=== PATIENT | male | born 1985 | race African-American/Black ===

== ENCOUNTER 2023-06-27 16:40 | Emergency (ER) | payer BC ==
[2023-06-27] MEDS ORDERED: IBUPROFEN 400 MG TAB ONE (17:01)
[2023-06-27] MEDS ORDERED: CYCLOBENZAPRINE 10 MG TAB ONE (17:02)
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
[2023-06-27 18:58] VITALS: BP 127/89; TEMP 97.4; O2SAT 99
== END 2023-06-27 18:30 | disposition home or self-care (01) ==
LOC: ER 16:40
DX: S13.4XXA Sprain of ligaments of cervical spine, initial encounter (principal); V47.5XXA Car driver injured in collision with fixed or stationary object in traffic accident, initial encounter
CPT/HCPCS: 72040; 99285